=== PATIENT | female | born 1990 | race Caucasian/White ===

== ENCOUNTER → 2017-11-20 | Outpatient (CLI) | payer OTHER ==
--- NOTE | 2017-11-20 16:57 | Diagnostic Imaging Report ---
PROCEDURE:TRANSVAGINAL ULTRASOUND COMPARISON:None. INDICATIONS:Infertility Associated with anovulation TECHNIQUE: Grayscale transverse and sagittal transvaginal images were obtained of the pelvis. FINDINGS: UTERUS: Measures 2.6 x 4.0 x 6.3 cm and is retroflexed. Myometrial echotexture is normal. No evidence of fibroid. ENDOMETRIUM: Measures 2 mm in thickness and is diffusely hyperechoic. No fluid in endometrial canal. No gestational sac. CERVIX: Normal. RIGHT OVARY: Measures 1.8 x 1.9 x 2.8 cm. Several follicles are present. These are not increased in number and are randomly scattered. No mass. LEFT OVARY: Measures 1.6 x 2.0 x 3.2 cm. Several follicles are present. A dominant follicle measures 9 x 13 x 12 mm. The follicles are not increased in number and are randomly scattered. No mass. No adnexal masses. There is no free fluid within the pelvis. CONCLUSION: No evidence of intrauterine or ectopic . Normal uterus and endometrium. Normal ovaries. No sonographic evidence of PCOS. Dictated by: Fede Sidhu M.D. on 11/20/2017 at 17:02 Electronically approved by: Fede Sidhu M.D. on 11/20/2017 at 17:02
== END ==
LOC: US 15:57
PROVIDERS: ATTEND Internal Medicine
DX: N97.0 Female infertility associated with anovulation (principal)
CPT/HCPCS: 76830